=== PATIENT | female | born 1970 | race Caucasian/White ===

== ENCOUNTER 2024-11-03 06:50 | Day surgery (SDC) | payer OTHER ==
[~2024-11-03] VITALS: Ht 170.2 cm; Wt 85.0 kg
[~2024-11-03 06:50] MED LIST: ALBU18HF12 IH; BECL10.62 IH; CETI10TA58 PO; CHOL500045 PO; DICL100G60 TP; DOXY-466 PO; DULO30CA89 PO; FAMO20 PO; GABA-1181 PO; IPRAHFA IH; LIDO700A30 TD; OMEP20CA12 PO; SODIUM CHLORIDE 0.9% 1,000 ML IV ONE; SODIUM CHLORIDE 0.9% 1,000 ML ONE; SUMA25TA15 PO
[2024-11-03] MEDS ORDERED: BACL10TA PO (08:02)
[2024-11-03 08:05] LABS: GLUCOMETER DEV NAME(LOC) SDS.; GLUCOSE,POINT OF CARE 113 MG/DL (70-110)
[2024-11-03] MEDS: SODIUM CHLORIDE 0.9% 1,000 ML IV ONE (08:12)
[2024-11-03] MEDS ORDERED: FentaNYL CITRATE PF 100 MCG/2 ML VIAL ONE (08:24)
[2024-11-03] MEDS ORDERED: MIDAZOLAM HCL 2 MG/2 ML VIAL ONE (08:24)
[2024-11-03 09:45] VITALS: PULSE 70; RESP 18; O2SAT 97
== END 2024-11-03 12:40 | disposition home or self-care (01) ==
LOC: SURGERY 06:50
PROVIDERS: ATTEND Internal Medicine Critical Care Medicine
DX: R05.3 Chronic cough (principal); R04.2 Hemoptysis; R06.1 Stridor; R49.0 Dysphonia; R91.8 Other nonspecific abnormal finding of lung field; E11.9 Type 2 diabetes mellitus without complications; J45.909 Unspecified asthma, uncomplicated; K21.9 Gastro-esophageal reflux disease without esophagitis; Z98.51 Tubal ligation status; Z98.890 Other specified postprocedural states; Z88.0 Allergy status to penicillin
CPT/HCPCS: 31623; 82962; 87206; 87101; 87220; 87070; 88108; 31624; 94760; 71045; 87015; J3010; J2250; J2919; J7030